=== PATIENT | female | born 1960 | race Caucasian/White ===

== ENCOUNTER → 2016-10-18 | Outpatient (REF) | payer OTHER ==
[2016-10-18 11:54] LABS: BASO % 0.6 % (0.0-1.0); EOS % 0.7 % (0.0-3.0); LARGE UNSTAINED CELL # 0.1 K/mm3 (0.0-0.4); LYMPH # 1.4 K/mm3 (1.5-4.5); LYMPH % 25.2 % (24.0-44.0); MEAN CORPUSCULAR HEMOGLOBIN 31.2 pg (27.0-33.0); MEAN CORPUSCULAR HGB CONC 32.5 g/dl (32.0-36.5); MEAN CORPUSCULAR VOLUME 96.2 fl (80.0-96.0); MONO # 0.3 K/mm3 (0.0-0.8); MONO % 5.1 % (0.0-5.0); NEUTROPHILS # 3.6 K/mm3 (1.8-7.7); NEUTROPHILS % 67.5 % (36.0-66.0); PLATELET COUNT, AUTOMATED 243 k/mm3 (150-450); RED CELL DISTRIBUTION WIDTH 13.4 % (11.5-14.5); WHITE BLOOD COUNT 5.4 K/mm3 (4.0-10.0)
[2016-10-18 12:01] LABS: ALBUMIN 3.7 GM/DL (3.2-5.2); ALBUMIN/GLOBULIN RATIO 1.28 (1.00-1.93); ALKALINE PHOSPHATASE 64 U/L (45-117); ALT/SGPT 20 U/L (12-78); ANION GAP 6 MEQ/L (8-16); AST/SGOT 16 U/L (15-37); BILIRUBIN,TOTAL 0.3 MG/DL (0.2-1.0); BLOOD UREA NITROGEN 24 MG/DL (7-18); CALCIUM LEVEL 8.7 MG/DL (8.5-10.1); CARBON DIOXIDE LEVEL 29 MEQ/L (21-32); CHLORIDE LEVEL 109 MEQ/L (98-107); CHOLESTEROL LEVEL 209 MG/DL (<200); CREATININE FOR GFR 0.75 MG/DL (0.55-1.02); GLOMERULAR FILTRATION RATE > 60.0 (>51); GLUCOSE, FASTING 75 MG/DL (70-105); POTASSIUM SERUM 4.4 MEQ/L (3.5-5.1); SODIUM LEVEL 144 MEQ/L (136-145); TOTAL PROTEIN 6.6 GM/DL (6.4-8.2); TRIGLYCERIDES LEVEL 46 MG/DL (<150)
== END ==
LOC: M LABDRAW1 11:30
PROVIDERS: ATTEND Emergency Medicine
DX: Z00.00 Encounter for general adult medical examination without abnormal findings (principal)

== ENCOUNTER 2017-01-06 10:47 | Outpatient (CLI) | payer OTHER ==
[~2017-01-06] VITALS: Ht 152.4 cm; Wt 54.4 kg
[~2017-01-06 10:47] MED LIST: ALEV220T26 PO; MULT1TAB10 PO; NS 1,000 ML IV ONE
[2017-01-06] MEDS ORDERED: LIDOCAINE 2% INJ 100 MG/5 ML SDV (FOR ANES.) As Ordered ONE (11:57)
[2017-01-06] MEDS ORDERED: PROPOFOL 200 MG/20 ML VIAL As Ordered ONE (11:57)
--- NOTE | 2017-01-06 12:16 | ROOR ---
Patient Name: Tressa Presley Procedure Date: 01/06/2017 11:57 AM Date of : 1960 Age: 56 Room: [facility] Gender: Female Note Status: Finalized Procedure: Colonoscopy Indications: Screening for colorectal malignant neoplasm Providers: Josef BONNER MD Referring MD: SARA BENAVIDES MD Requesting Provider: Medicines: Monitored Anesthesia Care Complications: No immediate complications. Procedure: Pre-Anesthesia Assessment: - The heart rate, respiratory rate, oxygen saturations, blood pressure, adequacy of pulmonary ventilation, and response to care were monitored throughout the procedure. The Colonoscope was introduced through the anus and advanced to the cecum, identified by appendiceal orifice and ileocecal valve. The colonoscopy was performed without difficulty. The patient tolerated the procedure well. The quality of the bowel preparation was good. Findings: The perianal and digital rectal examinations were normal. The entire examined colon appeared normal on direct and retroflexion views. The colon was moderately redundant. Impression: - The colon is normal on direct and retroflexion views. - Small internal hemorrhoids. - No specimens collected. Recommendation: - Repeat colonoscopy in 10 years for screening purposes. Josef Bonner MD Josef BONNER MD 01/06/2017 12:16:28 PM This report has been signed electronically. Number of Addenda: 0 Note Initiated On: 01/06/2017 11:57 AM Estimated Blood Loss: Estimated blood loss: none.
[2017-01-06 12:40] VITALS: BP 113/74
== END 2017-01-06 12:50 | disposition home or self-care (01) ==
LOC: M OPP 10:47
PROVIDERS: ATTEND Internal Medicine Gastroenterology
DX: Z12.11 Encounter for screening for malignant neoplasm of colon (principal); Q43.8 Other specified congenital malformations of intestine; K64.8 Other hemorrhoids; Z78.0 Asymptomatic menopausal state; Z80.1 Family history of malignant neoplasm of trachea, bronchus and lung

== ENCOUNTER → 2018-12-28 | Outpatient (REF) | payer OTHER ==
[~2018-12-28] MED LIST changes: -NS 1,000 ML IV ONE
[2018-12-28 12:40] LABS: BASO % 0.7 % (0.0-1.0); EOS # 0.1 10^3/uL (0.0-0.50); EOS % 2.1 % (0.0-3.0); HEMATOCRIT 39.3 % (36.0-47.0); HEMOGLOBIN 12.8 g/dl (12.0-15.5); LYMPH # 1.7 10^3/uL (1.5-4.5); LYMPH % 39.4 % (24.0-44.0); MEAN CORPUSCULAR HEMOGLOBIN 29.9 pg (27.0-33.0); MEAN CORPUSCULAR HGB CONC 32.6 g/dl (32.0-36.5); MEAN CORPUSCULAR VOLUME 91.8 fl (80.0-96.0); MONO # 0.4 10^3/uL (0.0-0.8); MONO % 10.2 % (0.0-5.0); NEUTROPHILS % 47.6 % (36.0-66.0); PLATELET COUNT, AUTOMATED 216 10^3/uL (150-450); RED BLOOD COUNT 4.28 10^6/uL (4.00-5.40); WHITE BLOOD COUNT 4.2 10^3/uL (4.0-10.0)
[2018-12-28 13:01] LABS: ALBUMIN 3.7 GM/DL (3.2-5.2); ALT/SGPT 22 U/L (12-78); BILIRUBIN,TOTAL 0.6 MG/DL (0.2-1.0); BLOOD UREA NITROGEN 19 MG/DL (7-18); CALCIUM LEVEL 8.5 MG/DL (8.8-10.2); CARBON DIOXIDE LEVEL 27 MEQ/L (21-32); CHLORIDE LEVEL 110 MEQ/L (98-107); CHOLESTEROL LEVEL 208 MG/DL (<200); CHOLESTEROL RISK RATIO 2.337 (<5); CREATININE FOR GFR 0.75 MG/DL (0.55-1.30); GLOMERULAR FILTRATION RATE > 60.0 (>45); GLUCOSE, FASTING 78 MG/DL (70-100); HDL CHOLESTEROL 89 MG/DL (>40); LDL CHOLESTEROL 108 MG/DL (<100); NON-HDL-C 119 MG/DL; POTASSIUM SERUM 4.2 MEQ/L (3.5-5.1); SODIUM LEVEL 143 MEQ/L (136-145); TOTAL PROTEIN 6.6 GM/DL (6.4-8.2); TRIGLYCERIDES LEVEL 53 MG/DL (<150)
== END ==
LOC: M LABDRWAD 12:11
PROVIDERS: ATTEND Physician Assistant
DX: E78.2 Mixed hyperlipidemia (principal); Z00.00 Encounter for general adult medical examination without abnormal findings

== ENCOUNTER → 2020-01-20 | Outpatient (REF) | payer OTHER ==
[2020-03-07 23:07] LABS: BASO % 0.6 % (0.0-1.0); EOS # 0.1 10^3/uL (0.0-0.5); EOS % 1.8 % (0.0-3.0); HEMATOCRIT 38.3 % (36.0-47.0); HEMOGLOBIN 12.3 g/dl (12.0-15.5); LYMPH # 2.2 10^3/uL (1.5-5.0); LYMPH % 45.7 % (24.0-44.0); MEAN CORPUSCULAR HEMOGLOBIN 30.7 pg (27.0-33.0); MEAN CORPUSCULAR HGB CONC 32.1 g/dl (32.0-36.5); MEAN CORPUSCULAR VOLUME 95.5 fl (80.0-96.0); MONO # 0.6 10^3/uL (0.0-0.8); MONO % 11.3 % (0.0-5.0); NEUTROPHILS % 40.2 % (36.0-66.0); PLATELET COUNT, AUTOMATED 243 10^3/uL (150-450); RED BLOOD COUNT 4.01 10^6/uL (4.00-5.40); WHITE BLOOD COUNT 4.9 10^3/uL (4.0-10.0)
[2020-03-17 00:43] LABS: ALBUMIN 3.7 GM/DL (3.2-5.2); ALT/SGPT 22 U/L (12-78); BILIRUBIN,TOTAL 0.3 MG/DL (0.2-1.0); BLOOD UREA NITROGEN 21 MG/DL (7-18); CALCIUM LEVEL 8.7 MG/DL (8.8-10.2); CARBON DIOXIDE LEVEL 30 MEQ/L (21-32); CHLORIDE LEVEL 107 MEQ/L (98-107); CHOLESTEROL LEVEL 222 MG/DL (<200); CHOLESTEROL RISK RATIO 2.921 (<5); CREATININE FOR GFR 0.69 MG/DL (0.55-1.30); GLOMERULAR FILTRATION RATE > 60.0 (>45); GLUCOSE, FASTING 83 MG/DL (70-100); HDL CHOLESTEROL 76 MG/DL (>40); LDL CHOLESTEROL 130 MG/DL (<100); NON-HDL-C 146 MG/DL; POTASSIUM SERUM 4.3 MEQ/L (3.5-5.1); SODIUM LEVEL 140 MEQ/L (136-145); TOTAL PROTEIN 6.5 GM/DL (6.4-8.2); TRIGLYCERIDES LEVEL 80 MG/DL (<150)
== END ==
LOC: M LABDRWAD 15:53
PROVIDERS: ATTEND Physician Assistant
DX: Z00.00 Encounter for general adult medical examination without abnormal findings (principal); E78.2 Mixed hyperlipidemia

== ENCOUNTER → 2021-02-22 | Outpatient (CLI) | payer OTHER ==
--- NOTE | 2021-02-22 15:25 | REP ---
INDICATION: SCREEN MAMMO WITH DENSE BREAST U/S. COMPARISON: Multiple prior screening examinations, the most recent, 12/31/2015 TECHNIQUE: Digital screening (2D) mammography was performed bilaterally in the CC and MLO projections. Additionally, breast tomosynthesis (3D mammography) was performed bilaterally in the CC and MLO projections. FINDINGS: The patient is a 60-year-old with no personal or known family history of breast cancer. The patient states that there have been multiple cancers in her family of unknown type. Patient has no history of breast surgery and has no specific breast complaints at this time. The Volpara volumetric breast density pattern is C, the breasts are heterogeneously dense, which may obscure small masses.. There are no suspicious calcifications, dominant masses, areas of architectural distortion or developing asymmetry is in either breast. There is no significant change when compared with the prior exam. IMPRESSION: BIRADS/ACR category 1: Negative. This patient's Tyrer-Cuzick lifetime breast cancer risk assessment score is 7.3%.%. This mammogram was interpreted with the aid of an FDA-approved computer-aided detection system. The patient states she had a clinical breast exam in January 2021. The patient letter being requested is M1. RECOMMENDATION: Repeat screening mammography recommended 1 year (for women over 40). <Electronically signed by Art Rodriguez > 02/22/21 [id number]
== END ==
LOC: M WHC 13:23
PROVIDERS: ATTEND Obstetrics & Gynecology
DX: Z12.31 Encounter for screening mammogram for malignant neoplasm of breast (principal)

== ENCOUNTER → 2021-03-03 | Outpatient (CLI) | payer OTHER ==
--- NOTE | 2021-03-03 16:27 | REP ---
INDICATION: Dense breast COMPARISON: Multiple the latest 02/20/2020 TECHNIQUE: Bilateral whole breast screening ultrasonography was performed using anatomical intelligence and shear wave elastography if necessary FINDINGS: There are no cystic or solid masses. There is no change compared to the prior exams. IMPRESSION: ACR category 2 benign bilateral whole breast screening ultrasonography. <Electronically signed by Arpit Loomis > 03/03/21 [id number]
== END ==
LOC: M WHC 12:50
PROVIDERS: ATTEND Obstetrics & Gynecology
DX: R92.2 Inconclusive mammogram (principal)

== ENCOUNTER → 2021-03-22 | Outpatient (REF) | payer OTHER ==
[2021-03-22 13:27] LABS: BASO % 0.6 % (0.0-1.0); EOS # 0.1 10^3/uL (0.0-0.5); EOS % 1.6 % (0.0-3.0); HEMATOCRIT 41.2 % (36.0-47.0); HEMOGLOBIN 13.1 g/dl (12.0-15.5); LYMPH % 38.6 % (24.0-44.0); MEAN CORPUSCULAR HEMOGLOBIN 29.8 pg (27.0-33.0); MEAN CORPUSCULAR HGB CONC 31.8 g/dl (32.0-36.5); MEAN CORPUSCULAR VOLUME 93.8 fl (80.0-96.0); MONO # 0.6 10^3/uL (0.0-0.8); MONO % 11.3 % (2.0-8.0); NEUTROPHILS # 2.5 10^3/uL (1.5-8.5); NEUTROPHILS % 47.7 % (36.0-66.0); PLATELET COUNT, AUTOMATED 234 10^3/uL (150-450); RED BLOOD COUNT 4.39 10^6/uL (4.00-5.40); WHITE BLOOD COUNT 5.1 10^3/uL (4.0-10.0)
[2021-03-22 14:01] LABS: ALBUMIN 3.6 GM/DL (3.2-5.2); ALT/SGPT 20 U/L (12-78); BILIRUBIN,TOTAL 0.5 MG/DL (0.2-1.0); BLOOD UREA NITROGEN 23 MG/DL (7-18); CALCIUM LEVEL 8.5 MG/DL (8.8-10.2); CARBON DIOXIDE LEVEL 31 MEQ/L (21-32); CHLORIDE LEVEL 108 MEQ/L (98-107); CHOLESTEROL LEVEL 191 MG/DL (<200); CHOLESTEROL RISK RATIO 2.448 (<5); CREATININE FOR GFR 0.74 MG/DL (0.55-1.30); GLOMERULAR FILTRATION RATE > 60.0 (>45); GLUCOSE, FASTING 77 MG/DL (70-100); HDL CHOLESTEROL 78 MG/DL (>40); LDL CHOLESTEROL 98 MG/DL (<100); NON-HDL-C 113 MG/DL; POTASSIUM SERUM 4.6 MEQ/L (3.5-5.1); SODIUM LEVEL 142 MEQ/L (136-145); TOTAL PROTEIN 6.6 GM/DL (6.4-8.2); TRIGLYCERIDES LEVEL 74 MG/DL (<150)
== END ==
LOC: M LABDRWAD 12:38
PROVIDERS: ATTEND Family Medicine
DX: Z00.00 Encounter for general adult medical examination without abnormal findings (principal)

== ENCOUNTER → 2021-04-12 | Outpatient (CLI) | payer OTHER ==
--- NOTE | 2021-04-12 14:45 | DEXAMM ---
INDICATION: OTHO DISRD OF BONE DENSITY AND STRUCTURE. COMPARISON: 12/08/2016 as well as other prior exams. TECHNIQUE: Bone density was measured using dual-energy x-ray absorptiometry (DEXA). FINDINGS: AP SPINE L1-L4 BMD 1.081 g/cm2 Young Adult T-Score -0.9 Age Matched Z-Score 0.5. LT FEMUR, TOTAL BMD 0.816 g/cm2 Young Adult T-Score -1.5 Age Matched Z-Score -0.5. LT NECK BMD 0.814 g/cm2 Young Adult T-Score -1.6 Age Matched Z-Score -0.3. RT FEMUR, TOTAL BMD 0.824 g/cm2 Young Adult T-Score -1.5 Age Matched Z-Score -0.4. RT NECK BMD 0.820 g/cm2 Young Adult T-Score -1.6 Age Matched Z-Score -0.2. IMPRESSION: There is normal bone density of the spine. There is low bone density of the left hip. There is low bone density of the right hip. The density of the spine has decreased 17.6% since the initial exam on 06/01/2010. The density of the spine decreased 7.0% since most recent exam on 12/08/2016. The density of the left hip has decreased 19.9% since initial exam on 06/01/2010. The density of the left hip has decreased 6.5% since most recent exam on 12/08/2016. The density of the right hip has decreased 19.4% since the initial exam on 06/01/2010. The density of the right hip has decreased 8.6% since the most recent exam on 12/08/2016. FOLLOW-UP: Recommendation for the next bone density exam: 2 years. <Electronically signed by Harish Gandhi > 04/12/21 [id number]
== END ==
LOC: M WHC 08:53
PROVIDERS: ATTEND Family Medicine
DX: M85.851 Other specified disorders of bone density and structure, right thigh (principal); M85.852 Other specified disorders of bone density and structure, left thigh

== ENCOUNTER → 2022-03-25 | Outpatient (CLI) | payer OTHER | LOC: M WHC 07:38 | PROVIDERS: ATTEND Obstetrics & Gynecology | DX: Z12.31 Encounter for screening mammogram for malignant neoplasm of breast (principal) ==

== ENCOUNTER → 2022-04-05 | Outpatient (REF) | payer OTHER ==
[2022-04-05 13:03] LABS: BASO # 0.1 10^3/uL (0.0-0.2); BASO % 1.2 % (0.0-1.0); EOS # 0.1 10^3/uL (0.0-0.5); EOS % 1.9 % (0.0-3.0); HEMATOCRIT 42.2 % (36.0-47.0); HEMOGLOBIN 13.3 g/dl (12.0-15.5); LYMPH # 1.9 10^3/uL (1.5-5.0); LYMPH % 45.6 % (24.0-44.0); MEAN CORPUSCULAR HEMOGLOBIN 30.2 pg (27.0-33.0); MEAN CORPUSCULAR HGB CONC 31.5 g/dl (32.0-36.5); MEAN CORPUSCULAR VOLUME 95.9 fl (80.0-96.0); MONO # 0.4 10^3/uL (0.0-0.8); MONO % 10.1 % (2.0-8.0); NEUTROPHILS # 1.7 10^3/uL (1.5-8.5); PLATELET COUNT, AUTOMATED 238 10^3/uL (150-450); WHITE BLOOD COUNT 4.2 10^3/uL (4.0-10.0)
[2022-04-05 13:38] LABS: ALBUMIN 3.5 GM/DL (3.2-5.2); ALT/SGPT 24 U/L (12-78); BILIRUBIN,TOTAL 0.5 MG/DL (0.2-1.0); BLOOD UREA NITROGEN 21 MG/DL (7-18); CALCIUM LEVEL 8.7 MG/DL (8.8-10.2); CARBON DIOXIDE LEVEL 28 MEQ/L (21-32); CHLORIDE LEVEL 109 MEQ/L (98-107); CHOLESTEROL LEVEL 202 MG/DL (<200); CHOLESTEROL RISK RATIO 2.657 (<5); GLOMERULAR FILTRATION RATE > 60.0 (>45); GLUCOSE, FASTING 85 MG/DL (70-100); HDL CHOLESTEROL 76 MG/DL (>40); LDL CHOLESTEROL 113 MG/DL (<100); NON-HDL-C 126 MG/DL; POTASSIUM SERUM 4.2 MEQ/L (3.5-5.1); SODIUM LEVEL 142 MEQ/L (136-145); TOTAL PROTEIN 6.5 GM/DL (6.4-8.2); TRIGLYCERIDES LEVEL 65 MG/DL (<150)
== END ==
LOC: M LABDRWAD 12:34
PROVIDERS: ATTEND Nurse Practitioner Family
DX: Z00.00 Encounter for general adult medical examination without abnormal findings (principal)

== ENCOUNTER → 2023-04-03 | Outpatient (REF) | payer OTHER ==
[2023-04-03 13:49] LABS: ALBUMIN 3.6 G/DL (3.2-5.2); ALKALINE PHOSPHATASE 52 U/L (46-116); ALT/SGPT 16 U/L (7.0-40); AST/SGOT 20 U/L (<34); BILIRUBIN,TOTAL 0.4 MG/DL (0.3-1.2); BLOOD UREA NITROGEN 19 MG/DL (9-23); CARBON DIOXIDE LEVEL 28 MMOL/L (20-31); CHLORIDE LEVEL 107 MMOL/L (98-107); CHOLESTEROL LEVEL 225 MG/DL (<200); CREATININE FOR GFR 0.75 MG/DL (0.55-1.30); GLOMERULAR FILTRATION RATE > 60.0 (>45); GLUCOSE, FASTING 82 MG/DL (74-106); HDL CHOLESTEROL 72.4 MG/DL (>40); NON-HDL-C 152.6 MG/DL; POTASSIUM SERUM 4.5 MMOL/L (3.5-5.1); SODIUM LEVEL 142 MMOL/L (136-145); TOTAL PROTEIN 6.1 G/DL (5.7-8.2); TRIGLYCERIDES LEVEL 68 MG/DL (<150)
[2023-04-03 13:54] LABS: BASO % 0.7 % (0.0-1.0); EOS # 0.1 10^3/uL (0.0-0.5); EOS % 1.7 % (0.0-3.0); HEMATOCRIT 42.2 % (36.0-47.0); HEMOGLOBIN 13.8 g/dl (12.0-15.5); LYMPH # 1.9 10^3/uL (1.5-5.0); LYMPH % 40.5 % (24.0-44.0); MEAN CORPUSCULAR HEMOGLOBIN 31.3 pg (27.0-33.0); MEAN CORPUSCULAR HGB CONC 32.7 g/dl (32.0-36.5); MEAN CORPUSCULAR VOLUME 95.7 fl (80.0-96.0); MONO # 0.6 10^3/uL (0.0-0.8); NEUTROPHILS # 2.1 10^3/uL (1.5-8.5); NEUTROPHILS % 44.9 % (36.0-66.0); PLATELET COUNT, AUTOMATED 232 10^3/uL (150-450); RED BLOOD COUNT 4.41 10^6/uL (4.00-5.40); WHITE BLOOD COUNT 4.6 10^3/uL (4.0-10.0)
== END ==
LOC: M LABDRWAD 13:01
PROVIDERS: ATTEND Nurse Practitioner Family
DX: Z00.00 Encounter for general adult medical examination without abnormal findings (principal)

== ENCOUNTER → 2023-04-19 | Outpatient (CLI) | payer OTHER | LOC: M WHC 08:06 | PROVIDERS: ATTEND Family Medicine | DX: Z13.820 Encounter for screening for osteoporosis (principal); M85.80 Other specified disorders of bone density and structure, unspecified site ==

== ENCOUNTER → 2024-04-16 | Outpatient (REF) | payer MEDICARE, OTHER ==
[2024-04-16 14:37] LABS: BASO % 0.9 % (0.0-1.0); EOS # 0.1 10^3/uL (0.0-0.5); EOS % 1.3 % (0.0-3.0); HEMATOCRIT 42.7 % (36.0-47.0); HEMOGLOBIN 13.5 g/dl (12.0-15.5); LYMPH % 42.3 % (24.0-44.0); MEAN CORPUSCULAR HEMOGLOBIN 30.1 pg (27.0-33.0); MEAN CORPUSCULAR HGB CONC 31.6 g/dl (32.0-36.5); MEAN CORPUSCULAR VOLUME 95.3 fl (80.0-96.0); MONO # 0.5 10^3/uL (0.0-0.8); MONO % 10.5 % (2.0-8.0); NEUTROPHILS # 2.1 10^3/uL (1.5-8.5); NEUTROPHILS % 44.8 % (36.0-66.0); PLATELET COUNT, AUTOMATED 258 10^3/uL (150-450); RED BLOOD COUNT 4.48 10^6/uL (4.00-5.40); WHITE BLOOD COUNT 4.7 10^3/uL (4.0-10.0)
[2024-04-16 14:40] LABS: ALBUMIN 3.6 G/DL (3.2-5.2); ALKALINE PHOSPHATASE 49 U/L (35-104); ALT/SGPT 16 U/L (7.0-40); AST/SGOT 15 U/L (<34); BILIRUBIN,TOTAL 0.7 MG/DL (0.3-1.2); BLOOD UREA NITROGEN 19 MG/DL (9-23); CALCIUM LEVEL 9.4 MG/DL (8.3-10.6); CARBON DIOXIDE LEVEL 30 MMOL/L (20-31); CHLORIDE LEVEL 109 MMOL/L (98-107); CHOLESTEROL LEVEL 220 MG/DL (<200); CHOLESTEROL RISK RATIO 3.19 (<5); CREATININE FOR GFR 0.79 MG/DL (0.55-1.30); GLOMERULAR FILTRATION RATE > 60.0 (>45); GLUCOSE, FASTING 81 MG/DL (74-106); HDL CHOLESTEROL 68.8 MG/DL (>40); NON-HDL-C 151.2 MG/DL; POTASSIUM SERUM 4.6 MMOL/L (3.5-5.1); SODIUM LEVEL 143 MMOL/L (136-145); TOTAL PROTEIN 6.7 G/DL (5.7-8.2); TRIGLYCERIDES LEVEL 76 MG/DL (<150)
== END ==
LOC: M LABDRWAD 14:01
PROVIDERS: ATTEND Nurse Practitioner Family
DX: Z00.00 Encounter for general adult medical examination without abnormal findings (principal); Z79.899 Other long term (current) drug therapy

== ENCOUNTER → 2025-04-29 | Outpatient (REF) | payer MEDICARE, OTHER ==
[2025-04-29 13:53] LABS: ALT/SGPT 19.0 U/L (7.0-40); AST/SGOT 20.0 U/L (<34); CALCIUM LEVEL 8.8 MG/DL (8.3-10.6); CARBON DIOXIDE LEVEL 29.0 MMOL/L (20-31); CHLORIDE LEVEL 109.0 MMOL/L (98-107); CHOLESTEROL LEVEL 202.0 MG/DL (<200); CHOLESTEROL RISK RATIO 2.86 (<5); CREATININE FOR GFR 0.77 MG/DL (0.55-1.30); GLOMERULAR FILTRATION RATE 85.0 (>45); LDL CHOLESTEROL 119.8 MG/DL (<100); NON-HDL-C 131.4 MG/DL; POTASSIUM SERUM 4.4 MMOL/L (3.5-5.1); SODIUM LEVEL 146.0 MMOL/L (136-145); TRIGLYCERIDES LEVEL 58.0 MG/DL (<150)
[2025-04-29 13:57] LABS: BASO # 0.0 10^3/uL (0.0-0.2); BASO % 0.7 % (0.0-1.0); EOS # 0.1 10^3/uL (0.0-0.5); EOS % 1.6 % (0.0-3.0); LYMPH # 1.8 10^3/uL (1.5-5.0); LYMPH % 40.2 % (24.0-44.0); MONO # 0.5 10^3/uL (0.0-0.8); MONO % 10.1 % (2.0-8.0); NEUTROPHILS # 2.1 10^3/uL (1.5-8.5); NEUTROPHILS % 47.4 % (36.0-66.0); PLATELET COUNT, AUTOMATED 253 10^3/uL (150-450)
== END ==
LOC: M LABDRWAD 13:18
PROVIDERS: ATTEND Nurse Practitioner Family
DX: Z00.00 Encounter for general adult medical examination without abnormal findings (principal); Z79.899 Other long term (current) drug therapy